=== PATIENT | female | born 1995 | race Caucasian/White ===

== ENCOUNTER 2018-03-26 18:31 | Emergency (ER) | payer BC ==
[2018-03-26] MEDS: ACETAMINOPHEN 325 MG TAB PO ×2 (20:17→20:21)
[2018-03-26] MEDS: IBUPROFEN 600 MG TAB PO (20:18)
== END 2018-03-26 21:35 | disposition home or self-care (01) ==
LOC: FTE 21:35
DX: K08.9 Disorder of teeth and supporting structures, unspecified (principal)
CPT/HCPCS: 70486; 81025; 99284-25